=== PATIENT | male | born 1990 | race African-American/Black ===

== ENCOUNTER 2020-09-15 12:42 | Emergency (ER) | payer SELFPAY ==
[~2020-09-15] VITALS: Ht 175.3 cm; Wt 80.0 kg
[2020-09-15] MEDS ORDERED: SODIUM CHLORIDE 0.9% 1,000 ML IV ONE (14:15)
[2020-09-15] MEDS ORDERED: LORAZEPAM 2MG/ML CPJ IM ONE (14:15)
[2020-09-15] MEDS ORDERED: HALOPERIDOL LACTATE 5MG/ML VIAL IM STA (15:34)
[2020-09-15 17:35] VITALS: BP 112/60
== END 2020-09-15 19:38 | disposition home or self-care (01) ==
LOC: ER 12:42
DX: F15.129 Other stimulant abuse with intoxication, unspecified (principal); I49.9 Cardiac arrhythmia, unspecified
CPT/HCPCS: 93005; 96360; 96372; 99283; J2060; J7030